=== PATIENT | female | born 1985 | race Caucasian/White ===

== ENCOUNTER 2016-09-25 15:46 | Emergency (ER) | payer OTHER ==
[~2016-09-25 15:46] MED LIST: ALBUTEROL17 GM INH; ANTIBIOTIC; AZITHROMYCIN250 MG PO; BACTRIM DS TABL1 TA1 PO; BACTRIM DS TABL1 TAB; CETAPHIL1 BAR EXT; CIPRO PO; COLACE PO; COMBIVENT MININEB INH; DARVOCET-N 1001 TAB PO; FLEXERIL10 M1 PO; HYDROCODON-ACE1 EAC9 PO; IBUPROFEN800 MG PO; KETOPROFEN PO; LORTAB 5/500 TA1 TA1 PO; MOBIC PO; PROVERA PO; SKELAXIN PO; TRIAMCINOLONE A15 G6 EXT; VICODIN; VOLTAREN75 MG PO; ZITHROMAX1 G/PKT PO
[2016-09-25 16:12] LABS: URINE SOURCE CLEAN CATCH
[2016-09-25 16:30] LABS: URINE APPEARANCE CLEAR; URINE BILIRUBIN NEG (NEG); URINE BLOOD 2+ (NEG); URINE COLOR YELLOW; URINE GLUCOSE NEG (NEG); URINE KETONE NEG (NEG); URINE LEUKOCYTE ESTERASE TRACE (NEG); URINE NITRATE NEG (NEG); URINE PH 6.5 (5-8); URINE PROTEIN NEG (NEG); URINE SPECIFIC GRAVITY 1.024 (1.003-1.035); URINE UROBILINOGEN 0.2 MG/DL (NEG)
[2016-09-25 16:34] LABS: URBCS1 AUWI 0-2 /[HPF] (0-2); URINE BACTERIA AUWI NEG (NEGATIVE); URINE SQUAMOUS EPITHELIAL CELL OCC /[HPF]
[2016-09-25 16:39] LABS: CULTURE INDICATED? NO
== END 2016-09-25 17:30 | disposition home or self-care (01) ==
LOC: CFTX 15:46
PROVIDERS: Nurse Practitioner Family
DX: S39.012A Strain of muscle, fascia and tendon of lower back, initial encounter (principal); F17.210 Nicotine dependence, cigarettes, uncomplicated; Z87.442 Personal history of urinary calculi; Z88.0 Allergy status to penicillin; Z88.1 Allergy status to other antibiotic agents; Z88.8 Allergy status to other drugs, medicaments and biological substances; X58.XXXA Exposure to other specified factors, initial encounter; Y92.9 Unspecified place or not applicable
CPT/HCPCS: 81003; 99283

== ENCOUNTER 2016-10-10 11:47 | Emergency (ER) | payer OTHER ==
--- NOTE | ~2016-10-10 | CR7 ---
[facility] A Service of [facility] RADIOLOGY TEXT RESULTS PATIENT: ADILIA BURGOS LOCATION: [facility] : 87 UNIT #: [id number] AGE: [address]: Tierney Wilburn MD SEX: F ORDER DR: [id number] [facility]. [place], [place] [address] [id number] MR#: [id number] Acc #: [id number] NAME: ADILIA BURGOS. : 1985 SEX: F STUDY DATE/TIME: 10/10/2016 11:33 UNIT: [facility] ROOM: STUDY DESCRIPTION: CR Abdomen Single AP View Attending Physician: Tierney Wilburn M.D. Ordering Physician: Tierney Wilburn M.D. Primary Care Physician: Primary Care Physician No MEDICAL IMAGING REPORT This report is preliminary unless electronic signature is present EXAM Abdomen HISTORY Left sided flank pain, dark urine for two days. FINDINGS A supine view of the abdomen was obtained. Compared to 06/10/16 The bones are normal. The bowel gas pattern is normal. No urinary stones are visible. There are calcifications in the pelvis that appear to be phleboliths and on the left side calcifications were present on the prior exam. IMPRESSION Normal gas pattern. No definite urinary stones. Dictated by... Matti De Dios M.D. THIS IS AN ELECTRONICALLY VERIFIED REPORT Matti De Dios M.D. at 10/10/2016 4:37 PM ZAKI/tatiana TD: 10/10/2016 14:11 JOB #: [id number] MEDICAL IMAGING REPORT [facility] A Service of [facility] RADIOLOGY TEXT RESULTS PATIENT: ADILIA BURGOS LOCATION: [facility] : 87 UNIT #: [id number] AGE: [address]: Tierney Wilburn MD SEX: F ORDER DR: Page 1 of 1 COPY
[2016-10-10 11:28] LABS: URINE SOURCE CLEAN CATCH
[2016-10-10 11:32] LABS: URINE APPEARANCE CLEAR; URINE BILIRUBIN NEG (NEG); URINE BLOOD NEG (NEG); URINE COLOR YELLOW; URINE GLUCOSE NEG (NEG); URINE KETONE NEG (NEG); URINE LEUKOCYTE ESTERASE NEG (NEG); URINE NITRATE NEG (NEG); URINE PH 8.5 (5-8); URINE PROTEIN NEG (NEG); URINE SPECIFIC GRAVITY 1.017 (1.003-1.035); URINE UROBILINOGEN 0.2 MG/DL (NEG)
[2016-10-10 11:52] LABS: CULTURE INDICATED? NO
== END 2016-10-10 13:16 | disposition home or self-care (01) ==
LOC: CED 11:47
PROVIDERS: Emergency Medicine
DX: R10.9 Unspecified abdominal pain (principal); R30.0 Dysuria; F17.210 Nicotine dependence, cigarettes, uncomplicated; Z87.442 Personal history of urinary calculi; Z88.1 Allergy status to other antibiotic agents; Z88.0 Allergy status to penicillin; Z88.8 Allergy status to other drugs, medicaments and biological substances
CPT/HCPCS: 74000; 81003; 84703; 96372; 99284; J1885

== ENCOUNTER 2017-02-22 15:17 | Emergency (ER) | payer OTHER ==
[~2017-02-22] VITALS: Ht 162.6 cm; Wt 103.0 kg
== END 2017-02-22 17:09 | disposition home or self-care (01) ==
LOC: CED 15:17 → CFTX 15:17
DX: L03.211 Cellulitis of face (principal); F17.200 Nicotine dependence, unspecified, uncomplicated; Z87.442 Personal history of urinary calculi; Z88.0 Allergy status to penicillin; Z88.8 Allergy status to other drugs, medicaments and biological substances
CPT/HCPCS: 99283